=== PATIENT | male | born 1995 | race Caucasian/White ===

== ENCOUNTER 2024-03-10 14:23 | Emergency (ER) | payer MEDICARE, SELFPAY ==
[2024-03-10 14:29] VITALS: BP 119/73
--- NOTE | 2024-03-10 14:35 | ED.GENMED ---
History of Present Illness
<Muriel Louis NP - Last Filed: 03/10/24 14:40>
General
Chief Complaint: Crisis Evaluation
Source: patient
Exam Limitations: none
Time Seen by Provider: 03/10/24 15:02
Nursing documentation reviewed up to this point in time: agreed with
History of Present Illness
History of Present Illness:
28-year-old male w IDDM, was hospitalized from November and January at [facility] for traumatic recovery/PTSD/anxiety/depression/SI.
Is here today Because he feels like he is 'spiraling' does feel suicidal, no plan, just doesn't want to live, 'actually I do want to live but I feel like I'm being dragged backwards...I'm having trouble coping.'
<Barbara Helm PA-C - Last Filed: 03/10/24 23:21>
History of Present Illness
History of Present Illness:
Triage HPI: 28-year-old male w IDDM, was hospitalized from November and January at [facility] for traumatic recovery/PTSD/anxiety/depression/SI.
Is here today Because he feels like he is 'spiraling' does feel suicidal, no plan, just doesn't want to live, 'actually I do want to live but I feel like I'm being dragged backwards...I'm having trouble coping.'
Patient is a 28 year old male with insulin dependent type 1 diabetes, anxiety, depression, PTSD presenting to the emergency department for crisis evaluation. Patient feels that he is 'spiraling' and does not have the support at home. Patient
brought himself here and is seeking mental health treatment options. He does express suicidal ideations although denies any current plan to act on these thoughts. He does endorse self-harm behabiors including scratching and punching himself in the
head. Patient denies any past suicidal attempts. No HI. No visual/auditory hallucinations. Patient was inpatient at [facility] in March 2023. He did recently return from approximately 1 month in a treatment center in [place] where he felt he
was seeing improvement. However�since arriving home his mental health has become worse and he is afraid that he will continue to spiral downward and harm himself. He states that he self-neglects and does not take good care of himself. He
currently lives in a temporary lease in [place] with a roommate. He does have family in [facility].
Review of Systems
<Barbara Helm PA-C - Last Filed: 03/10/24 23:21>
Review of Systems
Allergies reviewed?: Yes
All Other Systems: ROS reviewed and negative except as documented in HPI and ROS
Phy Exam
<Barbara Helm PA-C - Last Filed: 03/10/24 23:21>
Physical Exam
Physical Exam:
Vitals: Patient's vital signs are stable. Afebrile
General: Patient is well appearing, no acute distress. Nontoxic appearing
Skin: Warm and dry, no rashes or lesions
Head: Normocephalic, atraumatic
Eyes: Sclera nonicteric. EOMs intact. No nystagmus.
Throat: Protecting airway
Neck: Normal ROM, no cervical spine tenderness, no meningismus
Cardiac: Regular rate and rhythm, no murmurs.
Pulm: Normal respiratory effort, no wheezes, rales, rhonchi heard on exam.
Abdomen: No abdominal tenderness.
Extremities: No evidence of cyanosis or edema
Neuro: AAOx3. Grossly intact.
Psychiatric: Normal affect. Maintains eye contact. Cooperative. Answers questions. Directed speech.
Course
<Muriel Louis NP - Last Filed: 03/10/24 14:40>
Orders/Labs/Results
Orders:
Orders
03/10/24 14:37
1:1 Observation - Suicide/ Violent Behavior As Directed
Crisis Consult Urgent
Reason for Consult: SI
03/10/24 15:23
Acetaminophen Urgent
Complete Blood Count/With Diff Urgent
Comprehensive Metabolic Panel Urgent
Salicylate Urgent
Urinalysis Reflex To Culture Urgent
Date Specimen was Collected: 03/10/24
Time Specimen was Collected: 15:20
Urine Drug Abuse Screen Urgent
Date Specimen was Collected: 03/10/24
Time Specimen was Collected: 15:17
Abnormal Lab Results
03/10/24
15:23
MCH 33.3 H pg
(27.0-31.0)
MCHC 37.3 H g/dL
(33.0-37.0)
MPV 11.4 H fL
(7.4-10.4)
Chloride 97 L mmol/L
(98-107)
Carbon Dioxide 32 H mmol/L
(22-30)
Creatinine 0.6 L mg/dL
(0.7-1.3)
Glucose 173 H mg/dl
(70-99)
Urine Glucose 3+ A
(Negative)
Salicylates < 1.0 L mg/dl
(2.0-20.0)
Acetaminophen < 10 L ug/ml
(10-30)
03/10/24 15:23
03/10/24 15:23
Vital Signs
Initial and Last Documented VS:
Initial Vital Signs
Temp Pulse Resp BP Pulse Ox
97.4 F 77 18 119/73 99
03/10/24 14:29 03/10/24 14:29 03/10/24 14:29 03/10/24 14:29 03/10/24 14:29
Last Documented Vital Signs
Temp Pulse Resp BP Pulse Ox
97.4 F 77 18 119/73 99
03/10/24 14:29 03/10/24 14:29 03/10/24 14:29 03/10/24 14:29 03/10/24 14:29
<Barbara Helm PA-C - Last Filed: 03/10/24 23:21>
Orders/Labs/Results
Orders:
Orders
03/10/24 14:37
1:1 Observation - Suicide/ Violent Behavior As Directed
Crisis Consult Urgent
Reason for Consult: SI
03/10/24 15:23
Acetaminophen Urgent
Complete Blood Count/With Diff Urgent
Comprehensive Metabolic Panel Urgent
Salicylate Urgent
Urinalysis Reflex To Culture Urgent
Date Specimen was Collected: 03/10/24
Time Specimen was Collected: 15:20
Urine Drug Abuse Screen Urgent
Date Specimen was Collected: 03/10/24
Time Specimen was Collected: 15:17
Abnormal Lab Results
03/10/24
15:23
MCH 33.3 H pg
(27.0-31.0)
MCHC 37.3 H g/dL
(33.0-37.0)
MPV 11.4 H fL
(7.4-10.4)
Chloride 97 L mmol/L
(98-107)
Carbon Dioxide 32 H mmol/L
(22-30)
Creatinine 0.6 L mg/dL
(0.7-1.3)
Glucose 173 H mg/dl
(70-99)
Urine Glucose 3+ A
(Negative)
Salicylates < 1.0 L mg/dl
(2.0-20.0)
Acetaminophen < 10 L ug/ml
(10-30)
03/10/24 15:23
03/10/24 15:23
Vital Signs
Initial and Last Documented VS:
Initial Vital Signs
Temp Pulse Resp BP Pulse Ox
97.4 F 77 18 119/73 99
03/10/24 14:29 03/10/24 14:29 03/10/24 14:29 03/10/24 14:29 03/10/24 14:29
Last Documented Vital Signs
Temp Pulse Resp BP Pulse Ox
97.4 F 77 18 119/73 99
03/10/24 14:29 03/10/24 14:29 03/10/24 14:29 03/10/24 14:29 03/10/24 14:29
<Ariel Vallecillo, DO - Last Filed: 03/10/24 20:37>
Orders/Labs/Results
Orders:
Orders
03/10/24 14:37
1:1 Observation - Suicide/ Violent Behavior As Directed
Crisis Consult Urgent
Reason for Consult: SI
03/10/24 15:23
Acetaminophen Urgent
Complete Blood Count/With Diff Urgent
Comprehensive Metabolic Panel Urgent
Salicylate Urgent
Urinalysis Reflex To Culture Urgent
Date Specimen was Collected: 03/10/24
Time Specimen was Collected: 15:20
Urine Drug Abuse Screen Urgent
Date Specimen was Collected: 03/10/24
Time Specimen was Collected: 15:17
Abnormal Lab Results
03/10/24
15:23
MCH 33.3 H pg
(27.0-31.0)
MCHC 37.3 H g/dL
(33.0-37.0)
MPV 11.4 H fL
(7.4-10.4)
Chloride 97 L mmol/L
(98-107)
Carbon Dioxide 32 H mmol/L
(22-30)
Creatinine 0.6 L mg/dL
(0.7-1.3)
Glucose 173 H mg/dl
(70-99)
Urine Glucose 3+ A
(Negative)
Salicylates < 1.0 L mg/dl
(2.0-20.0)
Acetaminophen < 10 L ug/ml
(10-30)
03/10/24 15:23
03/10/24 15:23
Vital Signs
Initial and Last Documented VS:
Initial Vital Signs
Temp Pulse Resp BP Pulse Ox
97.4 F 77 18 119/73 99
03/10/24 14:29 03/10/24 14:29 03/10/24 14:29 03/10/24 14:29 03/10/24 14:29
Last Documented Vital Signs
Temp Pulse Resp BP Pulse Ox
97.4 F 77 18 119/73 99
03/10/24 14:29 03/10/24 14:29 03/10/24 14:29 03/10/24 14:29 03/10/24 14:29
<Barbara Helm PA-C - Last Filed: 03/10/24 23:21>
MDM/Problems Addressed
Differential Diagnosis Includes:
Not limited to: Anxiety, depression, self-harm, suicidal ideations, etc.
MDM/Problems Addressed:
28-year-old male year old male with history as documented presenting for crisis evaluation and therapy options. Patient does endorse self-harm behaviors including scratching and punching himself on the head although denies any suicidal attempts.
He does have passive SI although no active plan. No HI. No visual/auditory hallucinations. Patient has been inpatient in the past. Open to all therapeutic options. No medical concerns today. Patient has stable vital signs on arrival. On exam
patient is well-appearing, in no apparent stress. He is cooperative and answering questions. Labs and urine were obtained. He is mildly hyperglycemic although no anion gap. Patient not actively suicidal and do not feel he is a danger to himself
or anyone else. Crisis did consult with patient and gave many outpatient therapeutic options which I feel is appropriate for patient. Patient states he has all diabetic medications and materials at home. He will be discharged home with outpatient
therapy follow-up. Patient seen with attending physician.
Chronic conditions affecting care:
Anxiety, depression, PTSD
Acute Exacerbation and/or Progression of Chronic Illness:
N/A
<Barbara Helm PA-C - Last Filed: 03/10/24 23:21>
*Pulse Oximetry
Patient hypoxic: no
*EKG
Interpreted by ED Provider?: NA
*Stain Applicator Interpretation
Rate: Stain Applicator- N/A
*Critical Care Note
Total Time (30-74mins, 75-104mins- exclusive of procedures): Not Applicable
ED Attending Note
<Muriel Louis NP - Last Filed: 03/10/24 14:40>
-
Portions of this chart may have been created with voice recognition software.� Occasional wrong word or��sound alike� substitutions may have occurred due to the inherent limitations of voice recognition software.
<Ariel Vallecillo DO - Last Filed: 03/10/24 20:37>
ED Attending Note
Patient seen and examined by attending physician: Yes
I performed a history and physical exam of patient and discussed management with resident, I reviewed resident's note and agree with documented findings and plan of care.: Yes
ED Attending Note:
I have reviewed and agree with history and treatment plan by Barbara Preciado. My exam revealed 28-year-old male in no acute distress. Lungs clear, ambulates without difficulty. No SI or HI. Patient stable for discharge and outpatient follow-up.
Discharge Plan
Departure
Patient Disposition: Home (Routine Discharge)
Date of Disposition: 03/10/24
Time of Disposition: 16:45
Patient with high blood pressure during this ER visit?: No
Condition: Good
Covid-19: Not Applicable
Discharge Problem:
Anxiety and depression
Instructions: Depression, Adult (DC), Anxiety, Adult (DC)
Activity Restrictions/Additional Instructions:
RETURN TO THE EMERGENCY DEPARTMENT WITH ANY THOUGHTS OF HARMING YOURSELF OR ANYONE ELSE, VISUAL/AUDITORY HALLUCINATION, WORSENING IN CURRENT SYMPTOMS, OR ANY OTHER CONCERNS
-As discussed�it is important you contact the outpatient therapeutic options that were provided for you today.
-Follow-up with your primary care for further management of your diabetes.
Monitor your symptoms closely return to the emergency department with any acute worsening/new symptoms or any thoughts of harming yourself.anion
Interventions
Interventions:
*Risk Screen - Suicide Last Done: 03/10/24 14:29
*General Assessment Last Done: 03/10/24 14:29
*Neglect/Abuse Screening Last Done: 03/10/24 14:29
ED- Fall Risk Assessment Last Done: 03/10/24 15:19
*ED COVID-19 Vaccine History Last Done: 03/10/24 15:19
*Nursing Disposition Last Done: 03/10/24 17:00
ED-Psychological Assessment Last Done: 03/10/24 15:19
Discharge Date and Time
Discharge Date/Time: 03/10/24 17:00
Print Language: SERBIAN
[2024-03-10 15:47] LABS: Amphetamines Negative (Negative); Barbiturates Negative (Negative); Benzodiazepines Negative (Negative); Buprenorphine Negative (Negative); Cocaine Negative (Negative); Marijuana Negative (Negative); Methadone Negative (Negative); Methamphetamines Negative (Negative); Opiates Negative (Negative); Phencyclidine Negative (Negative); Tricyclic Antidepressants Negative (Negative)
[2024-03-10 15:57] LABS: ALT (SGPT) 35 U/L (0-50); AST (SGOT) 25 U/L (17-59); Acetaminophen < 10 ug/ml (10-30); Albumin 4.7 g/dl (3.5-5.0); Alkaline Phosphatase 47 U/L (38-126); Blood Urea Nitrogen 14 mg/dl (9-20); Carbon Dioxide 32 mmol/L (22-30); Chloride 97 mmol/L (98-107); Glucose 173 mg/dl (70-99); Potassium 4.6 mmol/L (3.5-5.1); Salicylate < 1.0 mg/dl (2.0-20.0); Sodium 138 mmol/L (135-145); Total Bilirubin 0.9 mg/dl (0.2-1.3); eGFR > 60.00
[2024-03-10 16:04] LABS: Urine Albumin Negative (Neg - Trace); Urine Bilirubin Negative (Negative); Urine Character Clear (Clear); Urine Color Straw; Urine Glucose 3+ (Negative); Urine Ketone Negative (Negative); Urine Leukocyte Negative (Negative); Urine Nitrite Negative (Negative); Urine Occult Blood Negative (Negative); Urine Urobilinogen Negative (Neg - 1+)
[2024-03-10 16:30] LABS: % Basophils 0.6 % (0-2); % Eosinophils 1.1 % (0-6); % Immature Granulocytes 0.2 % (0-0.5); % Lymphocytes 31.3 % (20.5-51.1); % Monocytes 7.1 % (1.7-9.3); % Neutrophils 59.7 % (42.2-75.2); Absolute Eosinophils 0.1 10^3/uL (0-0.7); Absolute Lymphocytes 1.6 10^3/uL (1.2-3.4); Absolute Monocytes 0.4 10^3/uL (0.1-0.6); Absolute Neutrophils 3.1 10^3/uL (1.4-6.5); Hemoglobin 16.8 g/dL (13.0-18.0); Mean Corp Hgb Conc. 37.3 g/dL (33.0-37.0); Mean Corpuscular Hgb 33.3 pg (27.0-31.0); Mean Corpuscular Volume 89.1 fL (80.0-94.0); Mean Platelet Volume 11.4 fL (7.4-10.4); Nucleated Red Blood Cells % 0 % (-); Platelet Count 222 10^3/uL (130-400); Red Blood Cell Count 5.05 10^6/uL (4.70-6.10); Red Cell Dist. Width 12.4 % (11.5-14.5); White Blood Cell Count 5.2 10^3/uL (4.8-10.8)
--- NOTE | 2024-03-10 17:00 | EDRN ---
Reviewed discharge instructions with patient. Verbalized understanding. Ambulated with steady gait to the lobby.
== END 2024-03-10 17:00 | disposition home or self-care (01) ==
LOC: EMR 14:23
PROVIDERS: Physician Assistant; Registered Nurse; EMERGENCY PHYSICIAN Emergency Medicine
DX: F32.A Depression, unspecified (principal); F41.9 Anxiety disorder, unspecified; F43.10 Post-traumatic stress disorder, unspecified; E10.9 Type 1 diabetes mellitus without complications; Z63.8 Other specified problems related to primary support group
CPT/HCPCS: 99283; 80053; 80143; 80179; 80306; 81003; 85025

== ENCOUNTER 2024-12-03 17:40 | Emergency (ER) | payer MEDICARE, SELFPAY ==
[2024-12-03 17:44] VITALS: BP 135/82
--- NOTE | 2024-12-03 19:20 | ED.GENMED ---
History of Present Illness
General
Chief Complaint: Crisis Evaluation
Source: patient
Exam Limitations: none
Time Seen by Provider: 12/03/24 19:07
History of Present Illness
History of Present Illness:
See MDM
Past History
Past History
ED Past Medical History: IDDM and Psychiatric
ED Past Surgical History: None
Social History
Tobacco: Non-smoker
Alcohol: None
Phy Exam
Physical Exam
Physical Exam:
See MDM
Course
Orders/Labs/Results
Orders:
Orders
12/03/24 17:42
1:1 Observation - Suicide/ Violent Behavior As Directed
Crisis Consult Urgent
Reason for Consult: SI
12/03/24 19:20
CT Head W/o Iv Contrast Urgent
Comment:
Reason For Exam: head injury, headache
12/03/24 19:47
Complete Blood Count/With Diff Urgent
Comprehensive Metabolic Panel Urgent
Urinalysis Reflex To Culture Urgent
Date Specimen was Collected: 12/03/24
Time Specimen was Collected: 19:45
Urine Drug Abuse Screen Urgent
Date Specimen was Collected: 12/03/24
Time Specimen was Collected: 19:45
12/03/24 20:26
Insulin Aspart [NOVOLOG vial] 5 units SC NOW STA
12/03/24 20:31
Add On- LAB Urgent
Tests Added?: urine drug screen
Abnormal Lab Results
12/03/24 12/03/24
19:47 19:52
WBC 4.7 L 10^3/uL
(4.8-10.8)
RBC 4.43 L 10^6/uL
(4.70-6.10)
MCH 33.4 H pg
(27.0-31.0)
MPV 10.6 H fL
(7.4-10.4)
Glucose 257 H mg/dl
(70-99)
Urine Glucose 3+ A
(Negative)
POC Glucose 258 H mg/dl
(70-99)
12/03/24 19:47
12/03/24 19:47
Vital Signs
Initial and Last Documented VS:
Initial Vital Signs
Temp Pulse Resp BP Pulse Ox
98.0 F 73 20 135/82 99
12/03/24 17:44 12/03/24 17:44 12/03/24 17:44 12/03/24 17:44 12/03/24 17:44
Last Documented Vital Signs
Temp Pulse Resp BP Pulse Ox
98.0 F 73 20 135/82 99
12/03/24 17:44 12/03/24 17:44 12/03/24 17:44 12/03/24 17:44 12/03/24 19:22
MDM/Problems Addressed
Differential Diagnosis Includes:
Note:
CHIEF COMPLAINT(S)
Self-harm tendencies and head injury from self-inflicted trauma.
HISTORY OF PRESENT ILLNESS
The patient is a 29-year-old male with a history of post-traumatic stress disorder (PTSD), depression, anxiety, and type 1 diabetes. He reports difficulty breaking a pattern of self-harm, specifically hitting himself in the head, which resulted in a
concussion. Despite awareness of the behaviors, he experienced a relapse, leading to headaches and sensitivity to noise and light, persisting beyond several days. The patient finds that being active and engaged in social activities helps him manage
his self-harming impulses. He is currently between jobs, which has increased stress and exacerbated symptoms. He reports changes in medication for sleep, contributing positively, but does not take specific psychiatric medications. The patients blood
glucose levels have been unstable recently, though his A1C was well-controlled in the past month. He expresses concern over the potential for serious injury from self-harm and mentions seeking inpatient care to address these issues.
PAST MEDICAL AND SURGICAL HISTORY
The patient is diagnosed with PTSD, depression, anxiety, and type 1 diabetes.
CHRONIC MEDICAL CONDITIONS SIGNIFICANTLY AFFECTING CARE
Type 1 diabetes, PTSD, depression, and anxiety.
REVIEW OF SYSTEMS
- Neurological: Headaches and sensitivity to noise and light following self-harm resulting in a concussion.
- Psychiatric: Reports persistent difficulties with impulse control related to self-harm, exacerbated by current stressors such as unemployment.
PHYSICAL EXAM
General: Alert, no acute distress.
Skin: Warm, dry.
Head: Normocephalic, atraumatic. EOMI
Neck: Appears supple, trachea midline.
Eyes, Ears, Nose, Mouth, and Throat: Oral mucosa moist.
Cardiovascular: No signs of cyanosis
Respiratory: Respirations are non-labored.
Abdomen: Non-distended
Musculoskeletal: No deformities
Neurological: No focal neurological deficit observed.
Psychiatric: Cooperative, appropriate mood and affect.
PLAN
1. Arrange for inpatient evaluation and care due to concerns over self-harm and potential for serious injury.
2. Conduct a CT scan of the head as part of medical clearance due to history of head trauma and symptoms.
3. Perform blood tests to assess for other possible abnormalities, considering the patients diabetes.
4. Request a urine drug screen to aid in possible inpatient facility placement.
5. Provide symptomatic relief with ibuprofen and an ice pack.
DIFFERENTIAL DIAGNOSIS
The Differential Diagnosis includes, in no particular order and is not limited to:
1. Concussion
2. Major depressive disorder
3. Post-traumatic stress disorder
4. Anxiety disorder
5. Adjustment disorder with depressed mood
6. Substance use disorder (though the patient denies usage)
7. Personality disorder
8. Traumatic brain injury
9. Obsessive-compulsive disorder
10. Intermittent explosive disorder
SUMMARY OF ENCOUNTER
The patient, a 29-year-old male with a history of PTSD, depression, anxiety, and type 1 diabetes, presented with self-harm tendencies resulting in a head injury. Upon evaluation, he was cleared medically with mild hyperglycemia, but no evidence of
ketoacidosis was noted. A subcutaneous dose of insulin was administered to manage hyperglycemia. The patient remained well-appearing, calm, and non-toxic throughout the assessment. To address his self-harming behavior and potential for serious
injury, arrangements were made for inpatient evaluation and care.
DISPOSITION
Transfer to [facility].
PLAN
1. Administer a subcutaneous dose of insulin to manage hyperglycemia.
2. Arrange transfer to [facility] for inpatient treatment of self-harm tendencies and potential for serious injury.
MEDICATION RECONCILIATION
Subcutaneous insulin administered.
MEDICAL DECISION MAKING
- Complexity of Data Reviewed: Chronic conditions affecting care include PTSD, depression, anxiety, type 1 diabetes.
- Data:
Category 1: Tests and documents: Review of blood glucose indicating mild hyperglycemia.
Category 3: Discussion of management: Coordinated with crisis setting team for inpatient placement at [facility].
- Risk: Decision to escalate care through admission to an inpatient facility to manage self-harm tendencies.
DIAGNOSIS
- Concussion (ICD-10: S06.0X0A)
- Major depressive disorder (ICD-10: F32.9)
- Post-traumatic stress disorder (ICD-10: F43.10)
- Anxiety disorder (ICD-10: F41.9)
*Pulse Oximetry
SaO2: 99
Oxygen Mode of Delivery: Room air
Patient hypoxic: no
*Critical Care Note
Total Time (30-74mins, 75-104mins- exclusive of procedures): Not Applicable
ED Attending Note
-
Portions of this chart may have been created with voice recognition software.� Occasional wrong word or��sound alike� substitutions may have occurred due to the inherent limitations of voice recognition software.
Discharge Plan
Departure
Patient Disposition: Psych Facility
Date of Disposition: 12/03/24
Time of Disposition: 19:48
Patient Status:: 201
Discharge Problem:
Intentional self-harm
Referrals:
UNKNOWN - PT DOES,NOT KNOW [Family Provider]
Interventions
Interventions:
*Risk Screen - Suicide Last Done: 12/03/24 17:42
*General Assessment Last Done: 12/03/24 17:44
*ED- Fall Risk Assessment Last Done: 12/03/24 17:56
*ED COVID-19 Vaccine History Last Done: 12/03/24 17:56
ED- Neurological Assessment Last Done: 12/03/24 17:56
ED-Psychological Assessment Last Done: 12/03/24 17:56
ED-Skin Assessment Last Done: 12/03/24 17:56
Discharge Date and Time
Print Language: ITALIAN
[2024-12-03 19:53] LABS: Glucose - Point of Care 258 mg/dl (70-99)
[2024-12-03 19:58] LABS: Urine Character Clear (Clear)
[2024-12-03 20:03] LABS: Hematocrit 40.1 % (39.0-52.0); Hemoglobin 14.8 g/dL (13.0-18.0); Mean Corp Hgb Conc. 36.9 g/dL (33.0-37.0); Mean Corpuscular Volume 90.5 fL (80.0-94.0); Nucleated Red Blood Cells % 0 % (-); Platelet Count 185 10^3/uL (130-400); Red Cell Dist. Width 11.9 % (11.5-14.5)
[2024-12-03 20:14] LABS: ALT (SGPT) 20 U/L (0-50); AST (SGOT) 18 U/L (17-59); Albumin 4.4 g/dl (3.5-5.0); Alkaline Phosphatase 53 U/L (38-126); Blood Urea Nitrogen 13 mg/dl (9-20); Calcium 9.3 mg/dl (8.4-10.2); Carbon Dioxide 30 mmol/L (22-30); Chloride 103 mmol/L (98-107); Glucose 257 mg/dl (70-99); Potassium 4.4 mmol/L (3.5-5.1); Sodium 137 mmol/L (135-145); Total Protein 6.6 g/dl (6.3-8.2); eGFR > 60.00
[2024-12-03] MEDS: NOVOLOG vial 5 UNITS SC (20:31)
== END 2024-12-03 21:55 ==
LOC: EMR 17:40
PROVIDERS: EMERGENCY PHYSICIAN Student in an Organized Health Care Education/Training Program
DX: S06.0XAA Concussion with loss of consciousness status unknown, initial encounter (principal); Y33.XXXA Other specified events, undetermined intent, initial encounter; Z87.828 Personal history of other (healed) physical injury and trauma; F32.9 Major depressive disorder, single episode, unspecified; E10.65 Type 1 diabetes mellitus with hyperglycemia; F43.10 Post-traumatic stress disorder, unspecified; F41.9 Anxiety disorder, unspecified
CPT/HCPCS: 99285; 96372; 70450; 80053; 80306; 81003; 82962; 85025